=== PATIENT | female | born 1950 ===

== ENCOUNTER → 2018-05-26 | Day surgery (SDC) | payer MEDICARE, BC ==
[2018-05-26] VITALS (9 sets, daily range): BP systolic 92–129; BP diastolic 57–76
[~2018-05-26] VITALS: Ht 157.5 cm; Wt 58.5 kg
[~2018-05-26] MED LIST: Atropine Inj 1mg/10ml Syr IV PRN; DIOVAN40 MG ORAL; DiphenhydrAMINE 50mg/ml Inj IVP PRN; GLUCOSAMINE1000 M1 PO; LORAZEPAM1 MG ORAL; LR 1000ml ONE; Lidocaine 1% MPF 10mg/ml 5ml ONE; Midazolam 2mg/2ml Inj IVP PRN; Propofol 200mg/20ml IV ONE; [UNRECOGNIZED DRUG - OTHER]; fentaNYL 100 mcg/2 mL IV PRN
--- NOTE | 2018-05-26 07:28 | Anethesia Preoperative Eval ---
Anesthesia Pre-op PMH/ROS General Date of Evaluation: May 26, 2018 Time of Evaluation: 07:16 Anesthesiologist: liam ASA Score: ASA 3 Mallampati Score Class I : Soft palate, uvula, fauces, pillars visible Class II: Soft palate, uvula, fauces visible Class III: Soft palate, base of uvula visible Class IV: Only hard plate visible Mallampati Classification: Class II Surgeon: linda Diagnosis: gerd, abdominal pain Surgical Procedure: egd/colonoscopy Anesthesia History: none Family History: no anesthesia problems Allergies: Coded Allergies: CODEINE (Verified Allergy, 10/13/12) shaking Medications: see eMAR Patient NPO?: Yes Past Medical History Cardiovascular: Reports: HTN, other - hypercholesterolemia Gastrointestinal/Genitourinary: Reports: other - hematemesis, tubal ligation, kidney cyst removal HEENT: Reports: other - tonsillitis Musculoskeletal/Integumentary: Reports: OA PSxH Narrative: tubal ligation, kidney cyst removal Anesthesia Pre-op Phys. Exam Physician Exam Last Vital Signs Date Time Temp Pulse Resp B/P (MAP) Pulse Ox O2 Delivery O2 Flow Rate FiO2 05/26/18 08:39 Room Air 05/26/18 08:35 97.8 62 18 129/75 96 Constitutional: NAD Neurologic: CN 2-12 intact Cardiovascular: RRR Respiratory: CTA Gastrointestinal: S/NT/ND Airway Exam Mallampati Score: Class II MO: full Neck: flexible TMD: 2fb ROM: full Anesthesia Pre-op A/P Risk Assessment & Plan Assessment: asa3 Plan: mac Status Change Before Surgery: No Pre-Antibiotics Drug: Lauren Kirby MD May 26, 2018 07:28
--- NOTE | 2018-05-26 08:42 | Short Stay Surgery H&P ---
History of Present Illness History of Present Illness Chief Complaint Abdominal pily and screening colon. BRAD Ulrich is a 67 year old female who was admitted on for Gerd, Abdominal Pain/screening colon Patient History Allergies: Coded Allergies: CODEINE (Verified Allergy, 10/13/12) shaking Medication History Scheduled Lorazepam* (Lorazepam*), 1 MG ORAL HS, (Reported) Valsartan (Diovan), 40 MG ORAL DAILY, (Reported) Miscellaneous Medications [karen], (Reported) Discontinued Medications Glucosamine Sulfate 2KCL (Glucosamine), 1,000 MG PO, (Reported) Discontinued Reason: Pt stopped taking med Review of Systems Cardiovascular: Reports: no symptoms Respiratory: Reports: no symptoms Skeletal: Reports: no symptoms Gastrointestinal: Reports: gastro esophageal reflux disease Genitourinary: Reports: no symptoms Neurologic: Reports: no symptoms Endocrine: Reports: no symptoms Hematologic: Reports: no symptoms Physical Exam Vital Signs Last Vital Signs Date Time Temp Pulse Resp B/P (MAP) Pulse Ox O2 Delivery O2 Flow Rate FiO2 05/26/18 08:35 97.8 62 18 129/75 96 Room Air Skin: normal HENT: normal Heart: normal Lungs: normal Abdomen: normal Extremities: normal Genitourinary: normal Plan Plan of Care Upper and lower GI endoscopy with biopsy. Preop Interventions None Summary of Findings See the reports Attestation Are the patient's medical conditions optimized for surgery? Attestation Response: yes Olga Carrillo MD May 26, 2018 08:42
--- NOTE | 2018-05-26 08:43 | Pre-Procedure Note/Attestation ---
Pre-Procedure Note/Attestation Complete Prior to Procedure Planned Procedure: left Procedure Narrative: Examination of the upper and lower GI tract via endoscopy Indications for Procedure Pre-Operative Diagnosis: R/ Peptic ulcer/gastritis/colon polyps Attestation I attest that I discussed the nature of the procedure; its benefits; risks and complications; and alternatives (and the risks and benefits of such alternatives ), prior to the procedure, with the patient (or the patient's legal patient care representative). I attest that, if there was a reasonable possibility of needing a blood transfusion, the patient (or the patient's legal patient care representative) was given the [facility] standardized written summary, pursuant to the [place] Blood Safety Act ([place] Health and Safety Code # 1645, as amended). I attest that I re-evaluated the patient just prior to the surgery and that there has been no change in the patient's H&P, except as documented below: Olga Carrillo MD May 26, 2018 08:43
--- NOTE | 2018-05-26 09:42 | Endoscopy Procedure Note ---
Endoscopy Procedure Note General Indication for Procedure: Abdominal pain/ALYSSIA and screening colon Procedures Performed: EGD - completely normal Upper GI. endoscopy. Biopsy obtained per random from gastric body., colonoscopy - Internal hemorrhoids. Large penduculated multilobular polyp found in proximal ascending colon that removed by pieces and base of the polyp was coagulated by hot biopsy forceps, polyp posibly of villous tubulovillous adenoma. Specimen: yes Pt Tolerated Procedure Well: Yes Estimated Blood Loss: none Anesthesia Anesthesiologist: Dr. Mane Anesthesia: moderate sedation Medications Medication Given: see anesthesia record Inserted Devices Implant(s) used?: No Quality Quality of Bowel Preparation: Excellent Did scope reach the cecum?: Yes Was there any complications?: No GI Core Measures 50 yrs or older w/o bx or poly: Yes 10yrs. F/U not recommended: Yes If not recommended, why?: <3yrs. since last colonoscopy: No Med reason:<3 yrs.: System Reason:<3 yrs.: Last colonoscopy >= to 3yrs: Yes Olga Carrillo MD May 26, 2018 09:42
--- NOTE | 2018-05-26 09:43 | Discharge Instructions ---
Discharge Instructions Discharge Instructions Follow up with: See the doctor in office after 2 weeks. For Congestive Heart Failure Reminder Report to your physician any weight gain of 5 pounds or more in one week. Olga Carrillo MD May 26, 2018 09:43
--- NOTE | 2018-05-26 09:57 | Immediate Post-Op Evaluation ---
Immediate Post-Op Evalulation Immediate Post-Op Evalulation Procedure: egd/colonoscopy/bx Date of Evaluation: May 26, 2018 Time of Evaluation: 09:57 Blood Products: none Estimated Blood Loss: negligible Blood Pressure Systolic: 92 Blood Pressure Diastolic: 58 Pulse Rate: 66 Respiratory Rate: 18 O2 Sat by Pulse Oximetry: 100 Temperature (Fahrenheit): 97.4 Pain Score (1-10): 0 Nausea: No Vomiting: No Complications none Patient Status: awake, reacts, patent Hydration Status: adequate Drug: Lauren Kirby MD May 26, 2018 09:57
--- NOTE | 2018-05-26 10:00 | 48 Hour Post Anesthesia Eval ---
Post Anesthesia Evaluation Procedure: egd/colonoscopy/bx Date of Evaluation: May 26, 2018 Time of Evaluation: 09:59 Blood Pressure Systolic: 98 0: 68 Pulse Rate: 68 Respiratory Rate: 18 Temperature (Fahrenheit): 97.4 O2 Sat by Pulse Oximetry: 100 Airway: patent Nausea: No Vomiting: No Hydration Status: adequate Cardiopulmonary Status: stable Mental Status/LOC: patient returned to baseline Post-Anesthesia Complications: none Follow-up care needed: N/A Lauren Gallagher MD May 26, 2018 10:00
--- NOTE | 2018-05-26 15:45 | Operative Note - Dictated ---
DATE OF OPERATION: 05/26/2018 SURGEON: Olga Carrillo M.D. PROCEDURE: Esophagogastroduodenoscopy with biopsy. PREOPERATIVE DIAGNOSES: Abdominal pain, history of chronic gastroesophageal reflux. POSTOPERATIVE DIAGNOSIS: Completely normal upper GI endoscopy. Biopsy was taken per random from gastric body. MEDICATION USED: Per Dr. Mane, anesthesiologist. INSTRUMENT: GIF Olympus upper GI video endoscope. DESCRIPTION OF PROCEDURE: The patient after arriving at the endoscopy unit, was told about risks and benefits of the procedure, which she accepted and signed informed consent. She was then put on the left lateral decubitus position. After adequate IV sedation, the scope was gently passed through the cricopharyngeal area, was lodged into the upper esophagus and gradually advanced towards gastroesophageal junction. The entire length of the esophagus was normal. GE junction also looked normal. No Hall's or hiatal hernia noted. At this time, the scope was advanced into the stomach. Gastric cavity was distended with insufflation of air and the areas of the fundus and the body and the antrum were examined in a closer fashion, which revealed no abnormality. The gastric mucosa was completely normal without any ulcers or polyps. One random biopsy from gastric body obtained and subsequently scope was passed through the pylorus. First and second portion of duodenum were also found to be completely normal. At this time, the scope was pulled out and procedure was terminated. The patient tolerated the procedure well. Olga Carrillo M.D. DR: GURPREET JOB#: [id number] CC:
--- NOTE | 2018-05-26 17:30 | Operative Note - Dictated ---
DATE OF OPERATION: 05/26/2018 SURGEON: Olga Carrillo M.D. PROCEDURE: Total colonoscopy with polypectomy. PREOPERATIVE DIAGNOSIS: Screening colonoscopy. POSTOPERATIVE DIAGNOSES: 1. Finding of the multilobulated large pedunculated polypoid lesion in proximal ascending colon, which was removed by pieces and coagulated with hot biopsy forceps at the base, mostly suggestive of possibility of villous tubular adenoma. 2. Internal hemorrhoids. ANESTHESIOLOGIST: Dr. Mane. INSTRUMENT: GIF Olympus video colonoscope. DESCRIPTION OF PROCEDURE: The patient after arriving an endoscopy unit, was told about risks and benefits of the procedure, which she accepted and signed informed consent. At this point, she was then put on the left lateral decubitus position. After adequate IV sedation, the scope was gently passed through the anal area, which revealed internal hemorrhoid, but not friable. The rest of the rectum was completely normal. At this time, the scope was passed into a very redundant left colon, which took significant amount of time to go through and finally scope reached the splenic flexure. From there, it was guided into the transverse and finally right colon all the way to the base of the cecum. The only findings was another large approximately 2.5 cm pedunculated polypoid lesion, which was multilobulated. This was possibly consistent with villous tubular adenoma. Subsequently, in significant amount of time, the polyp was removed by pieces and finally the base of the polyp was coagulated with hot biopsy forceps totally. These polyps looked benign however. However, the specimens were sent to the pathology lab for further examination. The removed polyp, which was totally, sent also to the laboratory. At this point, within 7 minutes, the scope was gradually pulled out and also the colon cleanup was adequate and excellent. The patient tolerated the procedure well and left the endoscopy room in a good condition. Olga Carrillo M.D. DR: AILEEN JOB#: [id number] CC:
== END | disposition home or self-care (01) ==
LOC: GAS 07:54
DX: Z12.11 Encounter for screening for malignant neoplasm of colon (principal); K64.8 Other hemorrhoids; K63.5 Polyp of colon; K21.9 Gastro-esophageal reflux disease without esophagitis; R10.9 Unspecified abdominal pain; Z88.6 Allergy status to analgesic agent; I10 Essential (primary) hypertension; E78.00 Pure hypercholesterolemia, unspecified; M19.90 Unspecified osteoarthritis, unspecified site
CPT/HCPCS: 43239; 45384; J2704; 94003; 94150